=== PATIENT | female | born 1970 | race Caucasian/White ===

== ENCOUNTER → 2018-05-16 | Outpatient (CLI) | payer OTHER ==
--- NOTE | 2018-05-17 09:37 | REP ---
BILATERAL MAMMOGRAM WITH DIAGNOSTIC MAMMOGRAM OF THE LEFT BREAST AND LEFT BREAST ULTRASOUND: [facility] lifetime risk of breast cancer 14.9%. There is no family history of breast cancer. Patient reports a palpable lump in the upper outer quadrant. That area is marked on the skin with a triangular marker. Bilateral MLO and CC views of the breasts are performed as well as spot compression views of the upper outer quadrant of the left breast. Additional ML views are also performed. At the site of the palpable lump in the upper outer quadrant of the left breast there is a mostly well circumscribed nodule. This measures about 2.2 cm in diameter. Some of the margins are obscured by adjacent fibroglandular tissue. There appears to be another smaller nodule slightly greater than 1 cm in diameter which has a similar morphology. No other mass or clustered microcalcifications are seen on the left. On the right there is a well circumscribed nodule which is partially obscured by adjacent fibroglandular tissue measuring about 2.4 cm in diameter. It is best seen on the CC view. Additional spot compression views of that area are also performed. No other mass or clustered microcalcifications are seen of the right breast. Real-time sonographic evaluation of the bilateral breasts is performed. On the right at 9 o'clock there is a simple cyst 1.5 x 1.6 x 1.7 cm with two adjacent smaller cysts. At the left 3 o'clock position a dominant cyst measures 2.1 x 1.7 x 2.6 cm corresponding to the palpable lump. There are three smaller adjacent cysts at the 2 to 3 o'clock position. IMPRESSION: BIRADS 2: BI-RADS/ACR category 2 mammogram. Benign Findings. A dominant nodule is seen in the outer right breast and outer left breast, with visualized margins fairly well circumscribed. Another smaller nodule is seen in the adjacent left breast laterally. By ultrasound these correspond to simple cysts and are benign. No other evidence of suspicious mass or clustered microcalcifications. Recommend followup mammogram in 1 year. This mammogram was interpreted with the aid of an FDA-approved computer-aided detection system. The patient states she/he had a clinical breast exam in 04/2018. The patient letter being requested is M2. Electronically Signed by Abiodun Kenny MD 05/17/2018 08:31 P
== END ==
LOC: M RAD 15:50
PROVIDERS: ATTEND Student in an Organized Health Care Education/Training Program
DX: R92.8 Other abnormal and inconclusive findings on diagnostic imaging of breast (principal); N60.01 Solitary cyst of right breast; N60.02 Solitary cyst of left breast

== ENCOUNTER → 2020-06-19 | Outpatient (CLI) | payer OTHER ==
--- NOTE | 2020-06-19 13:59 | REPMRS ---
Patient History The patient states she had a clinical breast exam in May 2020. Patient had first child at age 35. No known family history of cancer. Took unspecified hormones for 28 years. 3D TOMOSYNTHESIS WAS PERFORMED. The [facility] lifetime risk for breast cancer is 14.4%. Volpara breast density b. Digital Woman Screen Mammo: June 19, 2020 - Exam #: [id number] Bilateral CC and MLO view(s) were taken. Technologist: RT Alejandrina Prior study comparison: May 16, 2018, digital mammo diagnostic bilateral, performed at [facility]. FINDINGS: There are scattered fibroglandular densities. There is a fairly symmetric fibroglandular pattern in both breasts. There has been no interval development of masses, areas of architectural distortion or clusters of microcalcifications typical of malignancy. The previously identified cysts in the lateral aspect of each breast have decreased in size, with 1 of the cysts in the outer left breast remaining essentially stable.] Assessment: BI-RADS/ACR category 2 mammogram. Benign Findings. Recommendation Routine screening mammogram of both breasts in 1 year (for women over age 40). This mammogram was interpreted with the aid of an FDA-approved computer-aided dectection system. Electronically Signed By: Abiodun Kenny MD 06/19/20 [id number]
== END ==
LOC: M WHC 12:53
PROVIDERS: ATTEND Family Medicine
DX: Z12.31 Encounter for screening mammogram for malignant neoplasm of breast (principal); Z92.0 Personal history of contraception

== ENCOUNTER → 2021-01-19 | Outpatient (CLI) | payer OTHER | LOC: M CARPUL 09:30 | PROVIDERS: ATTEND Family Medicine | DX: R94.31 Abnormal electrocardiogram [ECG] [EKG] (principal) ==

== ENCOUNTER → 2021-05-21 | Outpatient (REF) | payer OTHER ==
[2021-05-21 16:18] LABS: BASO # 0.1 10^3/uL (0.0-0.2); BASO % 0.9 % (0.0-1.0); EOS # 0.1 10^3/uL (0.0-0.5); EOS % 1.4 % (0.0-3.0); HEMATOCRIT 44.6 % (36.0-47.0); HEMOGLOBIN 14.8 g/dl (12.0-15.5); LYMPH # 2.1 10^3/uL (1.5-5.0); LYMPH % 24.6 % (24.0-44.0); MEAN CORPUSCULAR HEMOGLOBIN 29.1 pg (27.0-33.0); MEAN CORPUSCULAR HGB CONC 33.2 g/dl (32.0-36.5); MEAN CORPUSCULAR VOLUME 87.6 fl (80.0-96.0); MONO # 0.6 10^3/uL (0.0-0.8); MONO % 6.6 % (2.0-8.0); NEUTROPHILS # 5.7 10^3/uL (1.5-8.5); NEUTROPHILS % 65.9 % (36.0-66.0); PLATELET COUNT, AUTOMATED 441 10^3/uL (150-450); RED BLOOD COUNT 5.09 10^6/uL (4.00-5.40); WHITE BLOOD COUNT 8.6 10^3/uL (4.0-10.0)
[2021-05-21 16:26] LABS: CREATININE,RANDOM URINE 16.1 MG/DL; TOTAL PROTEIN,RANDOM URINE < 5.0 MG/DL (0.0-12.0)
[2021-05-21 16:39] LABS: APPEARANCE, URINE CLEAR (CLEAR); BACTERIA, URINE AUTO 1+ (NEGATIVE); BILIRUBIN, URINE AUTO NEGATIVE (NEGATIVE); BLOOD, URINE BLOOD NEGATIVE (NEGATIVE); COLOR, URINE STRAW (YELLOW); GLUCOSE, URINE (UA) AUTO NEGATIVE (NEGATIVE); KETONE, URINE AUTO TRACE mg/dL (NEGATIVE); LEUKOCYTE ESTERASE, URINE AUTO NEGATIVE (NEGATIVE); NITRITE, URINE AUTO NEGATIVE (NEGATIVE); PROTEIN, URINE AUTO NEGATIVE (NEGATIVE); RBC, URINE AUTO 1 /HPF (0-3); SPECIFIC GRAVITY URINE AUTO 1.008 (1.002-1.035); SQUAMOUS EPITHELIAL CELL UR AU 1 /HPF (0-6); UROBILINOGEN, URINE AUTO 0.2 mg/dL (0.0-2.0); WBC, URINE AUTO 0 /HPF (0-3)
[2021-05-21 16:49] LABS: ALBUMIN 4.1 GM/DL (3.2-5.2); ALT/SGPT 57 U/L (12-78); BILIRUBIN,TOTAL 0.2 MG/DL (0.2-1.0); BLOOD UREA NITROGEN 17 MG/DL (7-18); C REACTIVE PROTEIN QUANTITATIV 0.33 MG/DL (0.00-0.30); CALCIUM LEVEL 9.4 MG/DL (8.5-10.1); CARBON DIOXIDE LEVEL 28 MEQ/L (21-32); CHLORIDE LEVEL 106 MEQ/L (98-107); COMPLEMENT C3 142 MG/DL (90-180); COMPLEMENT C4 40 MG/DL (10-40); CREATININE FOR GFR 0.77 MG/DL (0.55-1.30); GLOMERULAR FILTRATION RATE > 60.0 (>51); GLUCOSE, FASTING 81 MG/DL (70-100); POTASSIUM SERUM 4.1 MEQ/L (3.5-5.1); SODIUM LEVEL 140 MEQ/L (136-145); TOTAL PROTEIN 8.1 GM/DL (6.4-8.2)
[2021-05-21 17:03] LABS: ERYTHROCYTE SEDIMENTATION RATE 30 mm/hr (0-30)
== END ==
LOC: M SFHCRHEU 13:35
PROVIDERS: ATTEND Internal Medicine Rheumatology
DX: R76.8 Other specified abnormal immunological findings in serum (principal); H04.123 Dry eye syndrome of bilateral lacrimal glands; M35.3 Polymyalgia rheumatica
CPT/HCPCS: 80053; 81001; 82570; 84156; 85025; 85652; 86140; 86160; G0463

== ENCOUNTER → 2021-10-15 | Outpatient (REF) | LOC: M PLAIMG 12:23 | PROVIDERS: ATTEND Internal Medicine | DX: R06.02 Shortness of breath (principal) ==